=== PATIENT | female | born 1945 | race African-American/Black ===

== ENCOUNTER 2017-02-03 14:40 | Emergency (ER) | payer MEDICARE ==
[~2017-02-03] VITALS: Ht 160 cm; Wt 47.6 kg
[~2017-02-03 14:40] MED LIST: CYCLOBENZAPRINE10 MG ORAL
[2017-02-03 15:03] VITALS: BP 160/67
[2017-02-03 16:08] VITALS: BP 160/67
--- NOTE | 2017-02-03 17:37 | Emergency Room Report ---
History of Present Illness General Chief Complaint: Female Urogenital Problems Source: Patient Present Illness HPI 71-year-old female presents to ED for evaluation. States the last 2 days she's had increased bladder pain and dysuria. Notes history of bladder infections. Patient states she was recent hospitalized and was placed on IV antibiotics for bladder infection. States pain is sharp, 6/10, nonradiating. Denies flank pain. Denies fevers or chills. Denies nausea or vomiting. She has history of dialysis, says that his last dialysis session was yesterday. No other aggravating or relieving factors. Denies any other associated symptoms Allergies: Coded Allergies: NO KNOWN ALLERGIES (Unverified Allergy, Unknown, 09/28/15) Patient History Past Medical History: DM, [place], renal disease, dialysis Past Surgical History: none, pacemaker Pertinent Family History: none Social History: Denies: alcohol use, drug use, smoking Now: No Immunizations: UTD Reviewed Nursing Documentation: PMH: Agreed, PSxH: Agreed Nursing Documentation-PMH Past Medical History: No History, Except For Hx Cardiac Problems: Yes - [place] in 1999 Hx Hypertension: Yes Hx Pacemaker: Yes - ICD Hx Asthma: No Hx COPD: No Hx Diabetes: Yes Hx Cancer: No Hx Gastrointestinal Problems: No Hx Dialysis: Yes - AV shunt on LUE, M, W, F History Of Psychiatric Problem: No Hx Neurological Problems: No Hx Cerebrovascular Accident: No Hx Seizures: No Review of Systems All Other Systems: negative except mentioned in HPI Physical Exam Vital Signs Date Time Temp Pulse Resp B/P Pulse Ox O2 Delivery O2 Flow Rate FiO2 02/03/17 14:49 98.1 81 14 160/67 99 Room Air Sp02 EP Interpretation: reviewed, normal General Appearance: no apparent distress, alert, GCS 15, non-toxic Head: normocephalic Eyes: bilateral eye PERRL, bilateral eye normal inspection ENT: normal ENT inspection Neck: normal inspection Respiratory: normal inspection Cardiovascular #1: normal inspection Gastrointestinal: normal inspection Rectal: deferred Genitourinary: no CVA tenderness Musculoskeletal: normal inspection Neurologic: alert, oriented x3, responsive, motor strength/tone normal, sensory intact, speech normal Psychiatric: normal inspection Skin: normal inspection Lymphatic: normal inspection Medical Decision Making Diagnostic Impression: Primary Impression: Dysuria ER Course Hospital Course 71-year-old female presents to ED complaining of dysuria with suprapubic pain. Differential diagnoses include: UTI, cystitis, pyelonephritis Clinical course Patient placed on stretcher. After initial history and physical I ordered UA Patient states she is unable to urinate and only produces very little urine. Patient requests a Peters catheter. A catheter is placed and patient does not have any urine output. Patient given water. Patient still yield no urine. I explained to the patient that I cannot provide antibiotics without a urine sample. Patient states she will take a urine cup home and come back with the urine sample when available. She appears well, nontoxic and I believe patient be safely discharged at this time Diagnosis - dysuria Stable and discharged home. Instructed to followup with PMD. Return to ED if symptoms recur or worsen Last Vital Signs Date Time Temp Pulse Resp B/P Pulse Ox O2 Delivery O2 Flow Rate FiO2 02/03/17 16:08 98.1 79 14 160/67 99 Room Air Status: unchanged Disposition: HOME, SELF-CARE Condition: Stable Referrals: NON PHYSICIAN (PCP) Patient Instructions: Urinary Tract Infection, [id number] ROXANNA BECKETT M.D. Feb 03, 2017 17:36
== END 2017-02-03 16:08 | disposition home or self-care (01) ==
LOC: EMR 15:17
DX: R30.0 Dysuria (principal); R10.30 Lower abdominal pain, unspecified; I25.2 Old myocardial infarction; E11.9 Type 2 diabetes mellitus without complications; I12.0 Hypertensive chronic kidney disease with stage 5 chronic kidney disease or end stage renal disease; N18.6 End stage renal disease; Z99.2 Dependence on renal dialysis; Z95.810 Presence of automatic (implantable) cardiac defibrillator
CPT/HCPCS: 51701

== ENCOUNTER 2017-04-17 15:05 | Inpatient (IN) | payer MEDICARE ==
[~2017-04-17] VITALS: Ht 165.1 cm; Wt 48.3 kg
[2017-04-17 15:15] VITALS: BP 175/89
[2017-04-17] MEDS ORDERED: Mylanta II UD 30ml ORAL ONE (15:30)
--- NOTE | 2017-04-17 15:32 | Emergency Room Report ---
History of Present Illness General Chief Complaint: Abdominal Pain Source: Patient Present Illness HPI Patient is a 71-year-old female who presented after increased epigastric pain. Patient gradual onset of symptoms. Patient had a reported history of end-stage renal disease. Patient stated that she had been dialyzed on Tuesday. She had reported increased epigastric fullness. This was associated with discomfort. She denied any diarrhea or vomiting. She denied black or bloody stools. The patient stated that she had attempted to take Pepto-Bismol as well as maria teresa corky without relief Allergies: Coded Allergies: NO KNOWN ALLERGIES (Unverified Allergy, Unknown, 09/28/15) Patient History Past Medical History: see triage record Last Menstrual Period: na Reviewed Nursing Documentation: PMH: Agreed, PSxH: Agreed Nursing Documentation-PMH Past Medical History: No History, Except For Hx Cardiac Problems: Yes - [place] in 1999 Hx Hypertension: Yes Hx Pacemaker: Yes - ICD Hx Asthma: No Hx COPD: No Hx Diabetes: Yes Hx Cancer: No Hx Gastrointestinal Problems: No Hx Dialysis: Yes - AV shunt on LUE, M, W, F Hx Neurological Problems: No Hx Cerebrovascular Accident: No Hx Seizures: No Review of Systems All Other Systems: negative except mentioned in HPI Physical Exam Vital Signs Date Time Temp Pulse Resp B/P Pulse Ox O2 Delivery O2 Flow Rate FiO2 04/17/17 15:10 98.4 82 18 175/89 96 Room Air Sp02 EP Interpretation: reviewed, normal General Appearance: normal inspection, no apparent distress, alert, GCS 15, Chronically Ill Head: atraumatic ENT: normal ENT inspection, hearing grossly normal, normal voice Neck: normal inspection, full range of motion, supple, no bony tend Respiratory: normal inspection, lungs clear, normal breath sounds, no respiratory distress, no retraction, no wheezing Cardiovascular #1: regular rate, rhythm, no edema Gastrointestinal: normal inspection, normal bowel sounds, non tender, soft, no guarding, no hernia Genitourinary: no CVA tenderness Musculoskeletal: normal inspection, back normal, normal range of motion Neurologic: normal inspection, alert, oriented x3, responsive, parking regulation enforcement officer III-XII nml as tested, speech normal Psychiatric: normal inspection, judgement/insight normal, mood/affect normal Skin: normal color, no rash, other - ulceration to left upper arm, palpable thrill in arm Medical Decision Making Diagnostic Impression: Primary Impression: Chronic renal failure Additional Impressions: Hyperkalemia Abdominal pain ER Course Patient presented for abdominal pain. Differential diagnoses included ischemic bowel, appendicitis, perforated viscus, abdominal aortic aneurysm, inferior myocardial infarction, viral gastroenteritis Because of complexity of patient's case laboratory testing and imaging studies were ordered.CT abdomen pelvis read by radiology she does pacing fluids and including interstitial infiltrates and bilateral pulmonary edema pleural effusion periportal edema. The cardiomegaly and pacemaker were noted. The patient was given Kayexalate. I laboratory testing was notable for elevated potassium as well as BUN/creatinine. Dr. Jose Angel Maya was contacted for inpatient management. Labs Test 04/17/17 15:40 White Blood Count 6.2 K/UL (4.8-10.8) Red Blood Count 3.56 M/UL (4.20-5.40) Hemoglobin 11.3 G/DL (12.0-16.0) Hematocrit 36.2 % (37.0-47.0) Mean Corpuscular Volume 102 FL (80-99) Mean Corpuscular Hemoglobin 31.8 PG (27.0-31.0) Mean Corpuscular Hemoglobin Concent 31.3 G/DL (32.0-36.0) Red Cell Distribution Width 23.0 % (11.6-14.8) Platelet Count 122 K/UL (150-450) Mean Platelet Volume 8.2 FL (6.5-10.1) Neutrophils (%) (Auto) 77.0 % (45.0-75.0) Lymphocytes (%) (Auto) 13.0 % (20.0-45.0) Monocytes (%) (Auto) 8.5 % (1.0-10.0) Eosinophils (%) (Auto) 0.5 % (0.0-3.0) Basophils (%) (Auto) 1.1 % (0.0-2.0) Sodium Level 136 mEQ/L (135-145) Potassium Level 5.0 mEQ/L (3.4-4.9) Chloride Level 90 mEQ/L (98-107) Carbon Dioxide Level 24 mEQ/L (20-30) Anion Gap 22 (5-15) Blood Urea Nitrogen 46 mg/dL (7-23) Creatinine 6.6 mg/dL (0.5-0.9) Estimat Glomerular Filtration Rate mL/min (>60) Glucose Level 394 mg/dL (74-106) Calcium Level 9.3 mg/dL (8.6-10.2) Total Bilirubin 0.5 mg/dL (0.0-1.2) Aspartate Amino Transf (AST/SGOT) 40 U/L (5-40) Alanine Aminotransferase (ALT/SGPT) 26 U/L (3-33) Alkaline Phosphatase 154 U/L (35-104) Troponin I < 0.30 ng/mL (<=0.30) Total Protein 7.3 g/dL (6.6-8.7) Albumin 3.9 g/dL (3.5-5.2) Globulin 3.4 g/dL Albumin/Globulin Ratio 1.1 (1.0-2.7) Lipase 56 U/L (< 60) Last Vital Signs Date Time Temp Pulse Resp B/P Pulse Ox O2 Delivery O2 Flow Rate FiO2 04/17/17 15:15 98.4 18 175/89 96 Room Air 04/17/17 15:10 82 Status: unchanged Disposition: ADMITTED INPATIENT Condition: Serious Jay Jaquez Apr 17, 2017 15:32
[2017-04-17 16:26] LABS: BASOPHILS % (AUTO) 1.1 % (0.0-2.0); EOSINOPHILS % (AUTO) 0.5 % (0.0-3.0); MEAN CORPUSCULAR HEMOGLOBIN 31.8 PG (27.0-31.0); MEAN CORPUSCULAR HGB CONC 31.3 G/DL (32.0-36.0); MEAN CORPUSCULAR VOLUME 102 FL (80-99); MEAN PLATELET VOLUME 8.2 FL (6.5-10.1); MONOCYTES % (AUTO) 8.5 % (1.0-10.0); PLATELET COUNT 122 K/UL (150-450); RED BLOOD COUNT 3.56 M/UL (4.20-5.40); WHITE BLOOD COUNT 6.2 K/UL (4.8-10.8)
[2017-04-17 16:31] LABS: ALANINE AMINOTRANSFERASE 26 U/L (3-33); ALBUMIN/GLOBULIN RATIO 1.1 (1.0-2.7); ANION GAP 22 (5-15); ASPARTATE AMINO TRANSFERASE 40 U/L (5-40); CALCIUM 9.3 mg/dL (8.6-10.2); CARBON DIOXIDE 24 mEQ/L (20-30); CHLORIDE 90 mEQ/L (98-107); CREATININE 6.6 mg/dL (0.5-0.9); HEMOLYSIS 76; LIPASE 56 U/L (< 60); SODIUM 136 mEQ/L (135-145); TOTAL PROTEIN 7.3 g/dL (6.6-8.7)
[2017-04-17 16:34] LABS: TROPONIN I < 0.30 ng/mL (<=0.30)
[2017-04-17 16:41] VITALS: BP 162/67
[2017-04-17 18:05] VITALS: BP 157/72
[2017-04-17] MEDS ORDERED: GLIPIZIDE5 MG ORAL (18:20)
[2017-04-17] MEDS ORDERED: LISINOPRIL10 MG ORAL (18:20)
[2017-04-17] MEDS ORDERED: ASPIR 8181 MG ORAL (18:20)
[2017-04-17] MEDS ORDERED: OMEPRAZOLE20 M2 ORAL (18:20)
[2017-04-17] MEDS ORDERED: CARVEDILOL3.125 MG ORAL (18:20)
[2017-04-17] MEDS ORDERED: NOVOLOG100 UNIT/3 SUBQ (18:25)
[2017-04-17] MEDS ORDERED: Sodium Polystyrene Sulfonate 15gm Powder ORAL ONE (20:00)
[2017-04-17 20:15] VITALS: BP 144/61
[2017-04-17 22:18] VITALS: BP 156/72
[2017-04-17] MEDS ORDERED: Morphine Sulfate 4mg/ml Inj IVP PRN (22:30)
[2017-04-17] MEDS ORDERED: Morphine Sulfate 2mg/ml Inj IVP PRN (22:30)
[2017-04-17 23:20] VITALS: BP 148/71
--- NOTE | 2017-04-17 23:55 | History & Physical ---
History and Physical History & Physicial H&P dictated [id number] Dx: acute on chronic CHF exacerbation w/ Pulmonary edema ESRD on HD DM2 Abdominal pain r/o gastroparesis HTN ALEJANDRA MORALEZ M.D. Apr 17, 2017 23:55
[2017-04-18] MEDS ORDERED: Cyclobenzaprine 10mg Tab ORAL PRN
[2017-04-18] MEDS: Pantoprazole Inj IVP SCH ×3 (00:37→21:00)
--- NOTE | 2017-04-18 01:15 | History and Physical Report ---
DATE OF ADMISSION: 04/17/2017 CHIEF COMPLAINT: Shortness of breath and epigastric pain. HISTORY OF PRESENT ILLNESS: This is a 71-year-old female with history of end-stage renal disease on hemodialysis, Mondays, Wednesdays, and Fridays, congestive heart failure, hypertension, and status post ICD, who presents to the emergency room with epigastric pain. She states that she has diffuse abdominal pain. It feels like indigestion. She reports of bloating as well as belching. She has been in the emergency room a few months ago for the same problem. She had endoscopy in 2016 that was normal. The endoscopy was done at [facility]. She is followed by kiln cleaner Dr. Gutierrze at [facility]. Her last dialysis was Tuesday. She has got shortness of breath but denies chest pain. She denies any nausea, vomiting, or fever. She has had weight loss of approximately 20 pounds for this year. No blood in stools. PAST MEDICAL HISTORY: Significant for [place] in the year 1999, congestive heart failure status post ICD, hypertension, diabetes, and end-stage renal disease, on hemodialysis. PAST SURGICAL HISTORY: Left upper extremity graft that has failed because of infection, right chest wall tunneled dialysis catheter. MEDICATIONS: Reviewed in [facility] ALLERGIES: No known drug allergies. SOCIAL HISTORY: The patient does not drink alcohol or use any drugs. She is a former smoker. FAMILY HISTORY: Noncontributory. REVIEW OF SYSTEMS: A twelve point review of systems is negative except for pertinent positives as mentioned above. PHYSICAL EXAMINATION: VITAL SIGNS: Temperature is 98.4 degrees, pulse is 82, respiratory rate 18, blood pressure 175/89, and O2 saturation is 96% on room air. GENERAL: The patient is in no acute distress. The patient is alert, awake, and oriented. HEENT: Normocephalic/atraumatic. NECK: Supple. No JVD. LUNGS: Bilateral crackles heard. No wheezing. CARDIOVASCULAR: Regular rate and rhythm. Normal S1 and S2. ABDOMEN: Soft, nontender, and nondistended. No guarding. EXTREMITIES: No clubbing, cyanosis, or edema. SKIN: Normal inspection. No rash. PSYCH: Appropriate mood and affect. NEURO: Awake and can move all extremities. LABORATORY AND DIAGNOSTIC DATA: CBC, white count of 6.2, hemoglobin 11.2, and platelet count of 122,000. BMP, sodium 136, potassium 5, chloride 92, CO2 24, BUN 46, and creatinine 6.6. Glucose level is 394. Calcium is 9.3. EKG is pending. ASSESSMENT: 1. Acute on chronic congestive heart failure exacerbation with pulmonary edema. 2. Abdominal pain. 3. Differential diagnosis includes gastritis versus peptic ulcer disease versus gastroparesis. 4. Diabetes. 5. Hypertension. 6. History of congestive heart failure. 7. End-stage renal disease, on hemodialysis. PLAN: 1. Admit the patient to telemetry. 2. Renal consult with Dr. Chong for dialysis tomorrow. 3. Pulmonary consult for pulmonary edema. 4. ordered. 5. GI consult with Dr. Cabrera. 6. Protonix IV 40 mg b.i.d. 7. Regular insulin sliding scale. Jose Angel Maya MD DR: FREDDY/Bhargavi JOB#: [id number] CC:
[2017-04-18 04:10] VITALS: BP 157/78
[2017-04-18 07:09] LABS: BASOPHILS % (AUTO) 0.8 % (0.0-2.0); EOSINOPHILS % (AUTO) 2.6 % (0.0-3.0); LYMPHOCYTES % (AUTO) 13.5 % (20.0-45.0); MEAN CORPUSCULAR HGB CONC 30.8 G/DL (32.0-36.0); MEAN CORPUSCULAR VOLUME 101 FL (80-99); MEAN PLATELET VOLUME 8.2 FL (6.5-10.1); MONOCYTES % (AUTO) 11.5 % (1.0-10.0); NEUTROPHILS % (AUTO) 71.6 % (45.0-75.0); PLATELET COUNT 128 K/UL (150-450); RED BLOOD COUNT 3.84 M/UL (4.20-5.40); RED CELL DISTRIBUTION WIDTH 22.9 % (11.6-14.8); WHITE BLOOD COUNT 6.2 K/UL (4.8-10.8)
[2017-04-18 07:23] LABS: ANION GAP 26 (5-15); CALCIUM 8.7 mg/dL (8.6-10.2); CARBON DIOXIDE 21 mEQ/L (20-30); CHLORIDE 90 mEQ/L (98-107); CREATININE 7.2 mg/dL (0.5-0.9); HEMOLYSIS 51; POTASSIUM 4.1 mEQ/L (3.4-4.9); SODIUM 137 mEQ/L (135-145)
[2017-04-18] MEDS: NovoLOG Insulin Flexpen SUBQ SCH ×4 (07:26→21:46)
[2017-04-18 08:00] VITALS: BP 159/69
[2017-04-18] MEDS: Aspirin EC 81mg tab ORAL SCH (08:51)
[2017-04-18] MEDS: Lisinopril 20mg tab ORAL SCH ×2 (08:58→17:51)
[2017-04-18] MEDS: Heparin 5000 units/ml inj SUBQ SCH ×3 (09:00→21:00)
--- NOTE | 2017-04-18 11:25 | Diagnostic Imaging Report ---
Indications: Abdominal pain Technique: Continuous helical CT imaging of the abdomen and pelvis was performed with automatic exposure control on a Siemens sensation [address] scanner. Axial, coronal, sagittal images reconstructed at 3 mm slice thickness. No IV contrast was administered due to elevated BUN and creatinine levels. No oral contrast was administered per requesting physician's order, despite no contraindications listed. CTDI volume(s): 10 mGy Total DLP: 433 mGy-cm Findings: Comparison: None Lack of IV and oral contrast limits evaluation. Gastrointestinal tract nondilated throughout. One or more segments of mural thickening not excludable. Appendix not identified. Mild ascites. Colonic diverticula. No obvious adjacent stranding, extraluminal gas or loculated fluid collections demonstrated. Low-attenuation surrounds intrahepatic portal vein branches. Prominent arterial mural calcifications. Vascular patency indeterminate. Uterus and ovaries not identified. Urinary bladder poorly distended. Mural thickening not excludable. Diffuse body wall stranding. Remainder visualized abdominopelvic anatomy demonstrates no other obvious acute abnormality. Heart enlarged with right chamber pacemaker leads. Patchy interstitial infiltrates in both lung bases. Small bibasal pleural effusions. Multilevel disc marginal osteophyte formation lumbar, lower thoracic spine. Impression: Ascites, periportal edema, bilateral pulmonary interstitial infiltrates which may represent edema, bibasal pleural effusions, body wall edema may all represent anasarca. Superimposed left and right heart failure must also be considered. Limited evaluation gastrointestinal tract. Pathologic mural thickening of small bowel and/or colon not excludable. No evidence of obstruction or perforation. Colonic diverticulosis Previous hysterectomy Arteriosclerosis Cardiomegaly with pacemaker leads Degenerative spondylosis
[2017-04-18 12:00] VITALS: BP 151/69
--- NOTE | 2017-04-18 12:05 | Consultation ---
Consult Note Assessment/Plan Renal consult dictated # [id number] CADEN GORDON Apr 18, 2017 12:05
--- NOTE | 2017-04-18 12:05 | Internal Med Progress Note ---
Subjective Physician Name Jose Angel Moralez Attending Physician Jose Angel Moralez M.D. Current Medications Medications (Trade) Dose Ordered Sig/Rosalio Route PRN Reason Start Time Stop Time Status Last Admin Dose Admin Acetaminophen (Tylenol) 650 mg Q4H PRN ORAL Mild Pain (Pain Scale 1-3) 04/17/17 22:30 05/17/17 22:29 Aspirin (Ecotrin) 81 mg DAILY ORAL 04/18/17 09:00 05/18/17 08:59 04/18/17 08:51 Bisacodyl (Dulcolax) 10 mg HSPRN PRN RECTAL Constipation 04/17/17 22:30 05/17/17 22:29 Carvedilol (Coreg) 6.25 mg EVERY 12 HOURS ORAL 04/18/17 09:00 05/18/17 08:59 04/18/17 08:56 Cyclobenzaprine HCl (Flexeril) 10 mg BID PRN ORAL Muscle Spasm 04/18/17 00:00 05/18/17 00:00 Dextrose (Dextrose 50%) STAT PRN IV Hypoglycemia 04/18/17 00:00 05/18/17 00:00 Heparin Sodium (Porcine) (Heparin 5000 units/ml) 5,000 units EVERY 12 HOURS SUBQ 04/18/17 09:00 05/18/17 08:59 Heparin Sodium (Porcine) (Heparin Sod 1000 units/ml 10ml) 2,000 unit ONCE ONCE IV 04/18/17 23:45 04/18/17 23:46 Insulin Aspart (NovoLOG) BEFORE MEALS AND HS SUBQ 04/18/17 06:30 05/18/17 06:29 04/18/17 07:26 Lisinopril (Prinivil) 20 mg BID ORAL 04/18/17 09:00 05/18/17 08:59 04/18/17 08:58 Morphine Sulfate (Morphine Sulfate) 2 mg Q6HR PRN IVP Moderate Pain (Pain Scale 4-6) 04/17/17 22:30 04/24/17 22:29 Morphine Sulfate (Morphine Sulfate) 4 mg Q6HR PRN IVP Severe Pain (Pain Scale 7-10) 04/17/17 22:30 04/24/17 22:29 Ondansetron HCl 4 mg 4 mg Q6H PRN IVP Nausea & Vomiting 04/17/17 22:30 05/17/17 22:29 Pantoprazole (Protonix) 40 mg EVERY 12 HOURS IVP 04/18/17 00:00 05/18/17 00:00 04/18/17 08:52 Sodium Chloride (Sodium Chloride 1000ml bag) 1,000 ml @ 500 mls/hr Q2H PRN IVLG sbp<90 during hd 04/18/17 23:44 05/18/17 23:43 Allergies: Coded Allergies: NO KNOWN ALLERGIES (Unverified Allergy, Unknown, 09/28/15) Subjective on 2L O2 reports SOB denies CP awaiting HD 12 pt ROS neg except above positives Objective Last Vital Signs Date Time Temp Pulse Resp B/P Pulse Ox O2 Delivery O2 Flow Rate FiO2 04/18/17 11:08 89 04/18/17 08:58 159/69 04/18/17 08:00 98.8 18 Nasal Cannula 3.0 87 04/18/17 04:10 94 Laboratory Tests Test 04/17/17 15:40 04/18/17 04:35 White Blood Count 6.2 K/UL (4.8-10.8) 6.2 K/UL (4.8-10.8) Red Blood Count 3.56 M/UL (4.20-5.40) L 3.84 M/UL (4.20-5.40) L Hemoglobin 11.3 G/DL (12.0-16.0) L 11.9 G/DL (12.0-16.0) L Hematocrit 36.2 % (37.0-47.0) L 38.6 % (37.0-47.0) Mean Corpuscular Volume 102 FL (80-99) H 101 FL (80-99) H Mean Corpuscular Hemoglobin 31.8 PG (27.0-31.0) H 31.0 PG (27.0-31.0) Mean Corpuscular Hemoglobin Concent 31.3 G/DL (32.0-36.0) L 30.8 G/DL (32.0-36.0) L Red Cell Distribution Width 23.0 % (11.6-14.8) H 22.9 % (11.6-14.8) H Platelet Count 122 K/UL (150-450) L 128 K/UL (150-450) L Mean Platelet Volume 8.2 FL (6.5-10.1) 8.2 FL (6.5-10.1) Neutrophils (%) (Auto) 77.0 % (45.0-75.0) H 71.6 % (45.0-75.0) Lymphocytes (%) (Auto) 13.0 % (20.0-45.0) L 13.5 % (20.0-45.0) L Monocytes (%) (Auto) 8.5 % (1.0-10.0) 11.5 % (1.0-10.0) H Eosinophils (%) (Auto) 0.5 % (0.0-3.0) 2.6 % (0.0-3.0) Basophils (%) (Auto) 1.1 % (0.0-2.0) 0.8 % (0.0-2.0) Sodium Level 136 mEQ/L (135-145) 137 mEQ/L (135-145) Potassium Level 5.0 mEQ/L (3.4-4.9) H 4.1 mEQ/L (3.4-4.9) Chloride Level 90 mEQ/L (98-107) L 90 mEQ/L (98-107) L Carbon Dioxide Level 24 mEQ/L (20-30) 21 mEQ/L (20-30) Anion Gap 22 (5-15) H 26 (5-15) H Blood Urea Nitrogen 46 mg/dL (7-23) H 50 mg/dL (7-23) H Creatinine 6.6 mg/dL (0.5-0.9) H 7.2 mg/dL (0.5-0.9) H Estimat Glomerular Filtration Rate mL/min (>60) mL/min (>60) Glucose Level 394 mg/dL (74-106) H 170 mg/dL (74-106) #H Calcium Level 9.3 mg/dL (8.6-10.2) 8.7 mg/dL (8.6-10.2) Total Bilirubin 0.5 mg/dL (0.0-1.2) Aspartate Amino Transf (AST/SGOT) 40 U/L (5-40) Alanine Aminotransferase (ALT/SGPT) 26 U/L (3-33) Alkaline Phosphatase 154 U/L (35-104) H Troponin I < 0.30 ng/mL (<=0.30) Total Protein 7.3 g/dL (6.6-8.7) Albumin 3.9 g/dL (3.5-5.2) Globulin 3.4 g/dL Albumin/Globulin Ratio 1.1 (1.0-2.7) Lipase 56 U/L (< 60) Hemoglobin A1c 8.3 % (< 6.0) H Phosphorus Level 5.0 mg/dL (2.5-4.8) H Intake and Output 04/17/17 04/18/17 19:00 07:00 Intake Total 0 ml Balance 0 ml Intake Oral 0 ml # Voids 2 # Bowel Movements 1 Objective GENERAL: The patient is in no acute distress. The patient is alert, awake, and oriented. HEENT: Normocephalic/atraumatic. NECK: Supple. No JVD. LUNGS: Bilateral crackles heard. No wheezing. CARDIOVASCULAR: Regular rate and rhythm. Normal S1 and S2. R CHEST WALL DIALYSIS CATHETER ABDOMEN: Soft, epigastric TTP, and nondistended. No guarding. EXTREMITIES: No clubbing, cyanosis, or edema. Left arm graft SKIN: Normal inspection. No rash. PSYCH: Appropriate mood and affect. NEURO: Awake and can move all extremities. Assessment/Plan Assessment/Plan ASSESSMENT: 1. Acute on chronic congestive heart failure exacerbation with pulmonary edema. 2. Abdominal pain. 3. Differential diagnosis includes gastritis versus peptic ulcer disease versus gastroparesis. 4. Diabetes (A1c 8) 5. Hypertension. 6. History of congestive heart failure. 7. End-stage renal disease, on hemodialysis. PLAN: 1. Telemetry. 2. Renal consult with Dr. Chong; scheduled for HD today 3. O2 as needed 4. Resume home meds 5. GI consult with Dr. Cabrera. 6. Protonix IV 40 mg b.i.d. 7. Regular insulin sliding scale. JOSE ANGEL MORALEZ M.D. Apr 18, 2017 12:05
--- NOTE | 2017-04-18 13:01 | GI Initial Consult Note ---
Bere Matos N.P. 04/18/17 1301: History of Present Illness General Date patient seen: Apr 18, 2017 Time patient seen: 12:52 Reason for Hospitalization: Abdominal Pain Referring physician: ALEJANDRA MORALEZ Reason for Consultation: ABDOMINAL PAIN Present Illness HPI Patient is a 71-year-old female who presented after increased epigastric pain. Patient gradual onset of symptoms. Patient had a reported history of end-stage renal disease. Patient stated that she had been dialyzed on Tuesday. She had reported increased epigastric fullness. This was associated with discomfort. She denied any diarrhea or vomiting. She denied black or bloody stools. The patient stated that she had attempted to take Pepto-Bismol as well as maria teresa corky without relief GI Consult. HPI as noted above. GI consulted for abdominal pain. Pt seen on floor, awake A&Ox4 NAD with no c/o of N/V/D. Pt c/o of LUQ abdominal pain now at 5/10 which worsens after she eats. Denies constipation, states she had a BM this morning. She presents today with mild anemia and elevated alkaline phosphatase. APCT reveals mural wall thickening of the SB and/or colon, see full report below. The patient has history of colonic polyps. Last colonoscopy was 5+ years ago. Procedure: CT Abdomen Pelvis WO Contrast Indications: Abdominal pain Impression: Ascites, periportal edema, bilateral pulmonary interstitial infiltrates which may represent edema, bibasal pleural effusions, body wall edema may all represent anasarca. Superimposed left and right heart failure must also be considered. Limited evaluation gastrointestinal tract. Pathologic mural thickening of small bowel and/or colon not excludable. No evidence of obstruction or perforation. Colonic diverticulosis Previous hysterectomy Arteriosclerosis Cardiomegaly with pacemaker leads Degenerative spondylosis Home Meds Active Scripts Cyclobenzaprine Hcl* (FLEXERIL*) 10 Mg Tablet, 10 MG ORAL BID Y for Muscle Spasm , #20 TAB Prov:SARAHY VALDEZ.Jules 09/28/15 Reported Medications Insulin Aspart* (NOVOLOG*) 100 Unit/1 Ml Insuln.pen, SUBQ, #1 EA 0 Refills 04/17/17 Glipizide* (GLIPIZIDE*) 5 Mg Tablet, 10 MG ORAL BIDAC, TAB 04/17/17 Carvedilol* (CARVEDILOL*) 3.125 Mg Tablet, ORAL EVERY 12 HOURS, TAB 04/17/17 Aspirin* (ASPIR 81*) 81 Mg Tablet.dr, 81 MG ORAL DAILY, TAB 04/17/17 Omeprazole (OMEPRAZOLE) 20 Mg Capsule.dr, 20 MG ORAL DAILY, CAP 04/17/17 Lisinopril* (LISINOPRIL*) 10 Mg Tablet, 20 MG ORAL BID, TAB 04/17/17 Allergies: Coded Allergies: NO KNOWN ALLERGIES (Unverified Allergy, Unknown, 09/28/15) Patient History PMH Narrative Hx Cardiac Problems: Yes - NV in 1999 Hx Hypertension: Yes Hx Pacemaker: Yes - ICD Hx Asthma: No Hx COPD: No Hx Diabetes: Yes Hx Cancer: No Hx Gastrointestinal Problems: No Hx Dialysis: Yes - AV shunt on LUE, M, W, F Hx Neurological Problems: No Hx Cerebrovascular Accident: No Hx Seizures: No Review of Systems All Other Systems: negative except mentioned in HPI Physical Exam Vital Signs Date Time Temp Pulse Resp B/P Pulse Ox O2 Delivery O2 Flow Rate FiO2 04/17/17 15:10 98.4 82 18 175/89 96 Room Air 04/17/17 23:20 2.0 04/18/17 08:00 87 Sp02 EP Interpretation: reviewed Labs Laboratory Tests Test 04/17/17 15:40 04/18/17 04:35 White Blood Count 6.2 K/UL (4.8-10.8) 6.2 K/UL (4.8-10.8) Red Blood Count 3.56 M/UL (4.20-5.40) L 3.84 M/UL (4.20-5.40) L Hemoglobin 11.3 G/DL (12.0-16.0) L 11.9 G/DL (12.0-16.0) L Hematocrit 36.2 % (37.0-47.0) L 38.6 % (37.0-47.0) Mean Corpuscular Volume 102 FL (80-99) H 101 FL (80-99) H Mean Corpuscular Hemoglobin 31.8 PG (27.0-31.0) H 31.0 PG (27.0-31.0) Mean Corpuscular Hemoglobin Concent 31.3 G/DL (32.0-36.0) L 30.8 G/DL (32.0-36.0) L Red Cell Distribution Width 23.0 % (11.6-14.8) H 22.9 % (11.6-14.8) H Platelet Count 122 K/UL (150-450) L 128 K/UL (150-450) L Mean Platelet Volume 8.2 FL (6.5-10.1) 8.2 FL (6.5-10.1) Neutrophils (%) (Auto) 77.0 % (45.0-75.0) H 71.6 % (45.0-75.0) Lymphocytes (%) (Auto) 13.0 % (20.0-45.0) L 13.5 % (20.0-45.0) L Monocytes (%) (Auto) 8.5 % (1.0-10.0) 11.5 % (1.0-10.0) H Eosinophils (%) (Auto) 0.5 % (0.0-3.0) 2.6 % (0.0-3.0) Basophils (%) (Auto) 1.1 % (0.0-2.0) 0.8 % (0.0-2.0) Sodium Level 136 mEQ/L (135-145) 137 mEQ/L (135-145) Potassium Level 5.0 mEQ/L (3.4-4.9) H 4.1 mEQ/L (3.4-4.9) Chloride Level 90 mEQ/L (98-107) L 90 mEQ/L (98-107) L Carbon Dioxide Level 24 mEQ/L (20-30) 21 mEQ/L (20-30) Anion Gap 22 (5-15) H 26 (5-15) H Blood Urea Nitrogen 46 mg/dL (7-23) H 50 mg/dL (7-23) H Creatinine 6.6 mg/dL (0.5-0.9) H 7.2 mg/dL (0.5-0.9) H Estimat Glomerular Filtration Rate mL/min (>60) mL/min (>60) Glucose Level 394 mg/dL (74-106) H 170 mg/dL (74-106) #H Calcium Level 9.3 mg/dL (8.6-10.2) 8.7 mg/dL (8.6-10.2) Total Bilirubin 0.5 mg/dL (0.0-1.2) Aspartate Amino Transf (AST/SGOT) 40 U/L (5-40) Alanine Aminotransferase (ALT/SGPT) 26 U/L (3-33) Alkaline Phosphatase 154 U/L (35-104) H Troponin I < 0.30 ng/mL (<=0.30) Total Protein 7.3 g/dL (6.6-8.7) Albumin 3.9 g/dL (3.5-5.2) Globulin 3.4 g/dL Albumin/Globulin Ratio 1.1 (1.0-2.7) Lipase 56 U/L (< 60) Hemoglobin A1c 8.3 % (< 6.0) H Phosphorus Level 5.0 mg/dL (2.5-4.8) H General Appearance: well appearing, no apparent distress, alert Head: normocephalic EENT: normal ENT inspection Neck: full range of motion, supple Respiratory: normal breath sounds, no respiratory distress Cardiovascular: normal rate Gastrointestinal: normal inspection, non tender, soft Rectal: deferred Musculoskeletal: back normal Neurologic: normal inspection, alert, oriented x3, responsive Psychiatric: normal inspection, judgement/insight normal, memory normal Skin: normal inspection, normal color, no rash, warm/dry Lymphatic: normal inspection, no adenopathy Current Medications Current Medications Medications (Trade) Dose Ordered Sig/Rosalio Route PRN Reason Start Time Stop Time Status Last Admin Dose Admin Acetaminophen (Tylenol) 650 mg Q4H PRN ORAL Mild Pain (Pain Scale 1-3) 04/17/17 22:30 05/17/17 22:29 Aspirin (Ecotrin) 81 mg DAILY ORAL 04/18/17 09:00 05/18/17 08:59 04/18/17 08:51 Bisacodyl (Dulcolax) 10 mg HSPRN PRN RECTAL Constipation 04/17/17 22:30 05/17/17 22:29 Bisacodyl (Dulcolax) 10 mg ONCE ONCE ORAL 04/18/17 16:00 04/18/17 16:01 Carvedilol (Coreg) 6.25 mg EVERY 12 HOURS ORAL 04/18/17 09:00 05/18/17 08:59 04/18/17 08:56 Cyclobenzaprine HCl (Flexeril) 10 mg BID PRN ORAL Muscle Spasm 04/18/17 00:00 05/18/17 00:00 Dextrose (Dextrose 50%) STAT PRN IV Hypoglycemia 04/18/17 00:00 05/18/17 00:00 Heparin Sodium (Porcine) (Heparin 5000 units/ml) 5,000 units EVERY 12 HOURS SUBQ 04/18/17 09:00 05/18/17 08:59 Heparin Sodium (Porcine) (Heparin Sod 1000 units/ml 10ml) 2,000 unit ONCE ONCE IV 04/18/17 23:45 04/18/17 23:46 Insulin Aspart (NovoLOG) BEFORE MEALS AND HS SUBQ 04/18/17 06:30 05/18/17 06:29 04/18/17 12:30 Lisinopril (Prinivil) 20 mg BID ORAL 04/18/17 09:00 05/18/17 08:59 04/18/17 08:58 Magnesium Citrate (Citrate Of Magnesia) 300 ml ONCE ONCE ORAL 04/18/17 16:00 04/18/17 16:01 Morphine Sulfate (Morphine Sulfate) 2 mg Q6HR PRN IVP Moderate Pain (Pain Scale 4-6) 04/17/17 22:30 04/24/17 22:29 Morphine Sulfate (Morphine Sulfate) 4 mg Q6HR PRN IVP Severe Pain (Pain Scale 7-10) 04/17/17 22:30 04/24/17 22:29 Ondansetron HCl 4 mg 4 mg Q6H PRN IVP Nausea & Vomiting 04/17/17 22:30 05/17/17 22:29 Pantoprazole (Protonix) 40 mg EVERY 12 HOURS IVP 04/18/17 00:00 05/18/17 00:00 04/18/17 08:52 Polyethylene Glycol (Miralax) 238 gm ONCE ONCE ORAL 04/18/17 16:00 04/18/17 16:01 Sodium Chloride (Sodium Chloride 1000ml bag) 1,000 ml @ 500 mls/hr Q2H PRN IVLG sbp<90 during hd 04/18/17 23:44 05/18/17 23:43 Vitamin B Complex/ Vit C/Folic Acid (Nephrovite) 1 tab DAILY ORAL 04/18/17 13:00 05/18/17 12:59 GI: Plan Problems: (1) Pacemaker (2) Alkaline phosphatase raised (3) Colon wall thickening (4) Abdominal pain Plan APCT reviewed. hx of colonic polyps Pt scheduled for EGD/colonoscopy to evaluate abdominal pain. - CLD, NPO @ [place]. - hold all blood thinners order lipase level monitor H&H, transfuse prn ppi fu labs Discussed with Dr. Boyd. Thank you for referring this patient, we will follow. RUKHSANA BOYD 04/20/17 1238: History of Present Illness General Reason for Hospitalization: Abdominal Pain Present Illness Home Meds Active Scripts Cyclobenzaprine Hcl* (FLEXERIL*) 10 Mg Tablet, 10 MG ORAL BID Y for Muscle Spasm , #20 TAB Prov:SARAHY VALDEZ 09/28/15 Reported Medications Insulin Aspart* (NOVOLOG*) 100 Unit/1 Ml Insuln.pen, SUBQ, #1 EA 0 Refills 04/17/17 Glipizide* (GLIPIZIDE*) 5 Mg Tablet, 10 MG ORAL BIDAC, TAB 04/17/17 Carvedilol* (CARVEDILOL*) 3.125 Mg Tablet, ORAL EVERY 12 HOURS, TAB 04/17/17 Aspirin* (ASPIR 81*) 81 Mg Tablet.dr, 81 MG ORAL DAILY, TAB 04/17/17 Omeprazole (OMEPRAZOLE) 20 Mg Capsule.dr, 20 MG ORAL DAILY, CAP 04/17/17 Lisinopril* (LISINOPRIL*) 10 Mg Tablet, 20 MG ORAL BID, TAB 04/17/17 Allergies: Coded Allergies: NO KNOWN ALLERGIES (Unverified Allergy, Unknown, 09/28/15) Patient History Social History Narrative The patient was seen and examined at bedside and all new and available data was reviewed in the patients chart. I agree with the above findings, impression and plan. (Patient seen earlier today. Signature stamp does not reflect patient encounter time.). -Ofelia Warren MDh Kenneth NKiah Apr 18, 2017 13:01 RUKHSANA BOYD Apr 20, 2017 12:38
[2017-04-18 15:27] VITALS: BP 141/66
[2017-04-18] MEDS ORDERED: Bisacodyl EC 5mg tab ORAL ONE (16:00)
[2017-04-18] MEDS ORDERED: Magnesium Citrate Liq Btl ORAL ONE (16:00)
[2017-04-18] MEDS ORDERED: Polyethylene Glycol 238gm bottle ORAL ONE (16:00)
--- NOTE | 2017-04-18 16:45 | Consultation ---
DATE OF CONSULTATION: 04/18/2017 NEPHROLOGY CONSULTATION CONSULTING PHYSICIAN: Shahriar Chong M.D. REFERRING PHYSICIAN: Jose Angel Maya M.D. REASON FOR CONSULTATION: End-stage renal disease, requiring hemodialysis. HISTORY OF PRESENT ILLNESS: This is a 71-year-old female with history of end-stage renal disease, on hemodialysis every Tuesday, Tuesday, and Tuesday. The patient tells me that she has been on dialysis for the past 10 years. The etiology of end-stage renal disease is diabetes and hypertension. The patient usually gets her dialysis in [place]. The patient was last dialyzed on Tuesday. The patient was admitted for abdominal pain. PAST MEDICAL HISTORY: History of CHF, history of ICD placement, hypertension, and diabetes. The patient has a left arm graft and apparently, this was revised about 2 weeks ago and she still has grisel there. MEDICATIONS: Reviewed and noted in EMR. ALLERGIES: No known drug allergies. SOCIAL HISTORY: No history of smoking or alcohol abuse. REVIEW OF SYSTEMS: Noncontributory. PHYSICAL EXAMINATION: GENERAL: The patient is a an elderly female, in no acute distress. VITAL SIGNS: Blood pressure is 159/69, pulse 89, temperature 98.8, and respiratory rate is 18. HEENT: [place] conjunctivae. Anicteric sclerae. NECK: Supple. LUNGS: Clear to auscultation. HEART: S1 and S2 without murmurs or rubs. ABDOMEN: Soft and nontender. EXTREMITIES: No cyanosis or edema except the left arm, which has some swelling around her graft in the upper arm and the patient still has grisel there. The graft has good bruit. LABORATORY FINDINGS: The CBC shows a WBC of 6.2, hematocrit is 38.6, hemoglobin is 11.9, and platelets are 128,000. Chemistry panel shows serum sodium of 137, potassium 4.1, chloride 99, BUN 50, creatinine 7.2, blood sugar is 170, and phosphorus is 5. ASSESSMENT: This is a 71-year-old, female, with history of end-stage renal disease, on hemodialysis Tuesday, Tuesday, and Tuesday, and history of diabetes and hypertension who was admitted for abdominal pain. PLAN: The patient will be dialyzed today. The patient's blood pressure will be followed and adjustments will be made in the patient's medications if it remains high. The patient will need also to be on Nephro-Arlene one a day. Shahriar Chong M.D. DR: EVANGELIST JOB#: [id number] CC: AYAKA
[2017-04-18] MEDS: Nephrovite tab ORAL SCH (17:50)
[2017-04-18 20:00] VITALS: BP 136/80
[2017-04-18] MEDS ORDERED: Heparin Sod 1000 units/ml 10ml IV ONE (23:45)
[2017-04-19] VITALS (10 sets, daily range): BP systolic 126–155; BP diastolic 55–80
[2017-04-19] MEDS: NovoLOG Insulin Flexpen SUBQ SCH ×4 (06:30→23:24)
[2017-04-19 08:08] LABS: BASOPHILS % (AUTO) 1.3 % (0.0-2.0); EOSINOPHILS % (AUTO) 4.2 % (0.0-3.0); LYMPHOCYTES % (AUTO) 11.3 % (20.0-45.0); MEAN CORPUSCULAR HEMOGLOBIN 30.8 PG (27.0-31.0); MEAN CORPUSCULAR VOLUME 103 FL (80-99); MEAN PLATELET VOLUME 8.3 FL (6.5-10.1); MONOCYTES % (AUTO) 10.7 % (1.0-10.0); NEUTROPHILS % (AUTO) 72.5 % (45.0-75.0); PLATELET COUNT 128 K/UL (150-450); RED BLOOD COUNT 3.59 M/UL (4.20-5.40); RED CELL DISTRIBUTION WIDTH 22.8 % (11.6-14.8); WHITE BLOOD COUNT 5.2 K/UL (4.8-10.8)
[2017-04-19 08:13] LABS: INR 1.1 (0.9-1.1); PROTHROMBIN TIME 11.4 SEC (9.30-11.50)
[2017-04-19] MEDS: Aspirin EC 81mg tab ORAL SCH (09:00)
[2017-04-19] MEDS ORDERED: Propofol 10mg/ml 20ml IV ONE (09:00)
[2017-04-19] MEDS: Heparin 5000 units/ml inj SUBQ SCH ×2 (09:00→21:00)
[2017-04-19] MEDS ORDERED: LR 1000ml ONE (09:00)
[2017-04-19] MEDS: Pantoprazole Inj IVP SCH ×2 (09:00→23:14)
[2017-04-19] MEDS: Nephrovite tab ORAL SCH (09:00)
[2017-04-19] MEDS ORDERED: Lidocaine 1% MPF 10mg/ml 5ml ONE (09:00)
[2017-04-19] MEDS: Lisinopril 20mg tab ORAL SCH ×2 (09:00→17:30)
[2017-04-19] MEDS ORDERED: NS 550ML IV ONE (09:10)
--- NOTE | 2017-04-19 09:17 | Pre-Procedure Note/Attestation ---
Pre-Procedure Note/Attestation Complete Prior to Procedure Planned Procedure: not applicable Procedure Narrative: egd/colon Indications for Procedure Pre-Operative Diagnosis: anemia Attestation I attest that I discussed the nature of the procedure; its benefits; risks and complications; and alternatives (and the risks and benefits of such alternatives ), prior to the procedure, with the patient (or the patient's legal sales representative printing paper). I attest that, if there was a reasonable possibility of needing a blood transfusion, the patient (or the patient's legal sales representative printing paper) was given the [facility] standardized written summary, pursuant to the [place] Blood Safety Act ([place] Health and Safety Code # 1645, as amended). I attest that I re-evaluated the patient just prior to the surgery and that there has been no change in the patient's H&P, except as documented below: RUKHSANA BOYD Apr 19, 2017 09:17
--- NOTE | 2017-04-19 09:34 | Endoscopy Procedure Note ---
Endoscopy Procedure Note Indication for Procedure: anemia, abd pain Procedures Performed: EGD, colonoscopy Operative Findings/Diagnosis: diverticulosis Specimen: yes Pt Tolerated Procedure Well: Yes Estimated Blood Loss: none Anesthesiologist: phil Anesthesia: MAC Implant(s) used?: No 50 yrs or older w/o bx or poly: Not Applicable 10yrs. F/U not recommended: Not Applicable RUKHSANA BOYD Apr 19, 2017 09:34
--- NOTE | 2017-04-19 09:49 | Immediate Post-Op Evaluation ---
Immediate Post-Op Evalulation Immediate Post-Op Evalulation Procedure: EGD/colonoscopy Date of Evaluation: Apr 19, 2017 Time of Evaluation: 09:45 IV Fluids: 200 Blood Pressure Systolic: 126 Blood Pressure Diastolic: 58 Pulse Rate: 69 Respiratory Rate: 14 O2 Sat by Pulse Oximetry: 98 Temperature (Fahrenheit): 97.9 Nausea: No Vomiting: No Complications none Patient Status: awake, reacts, patent Hydration Status: adequate Drug: none VLADISLAV LANGSTON CRNA Apr 19, 2017 09:48
--- NOTE | 2017-04-19 09:51 | Anethesia Preoperative Eval ---
Anesthesia Pre-op PMH/ROS General Date of Evaluation: Apr 19, 2017 Time of Evaluation: 09:50 Anesthesiologist: miesha ASA Score: ASA 3 Mallampati Score Class I : Soft palate, uvula, fauces, pillars visible Class II: Soft palate, uvula, fauces visible Class III: Soft palate, base of uvula visible Class IV: Only hard plate visible Surgeon: sofia Diagnosis: Gastristis Surgical Procedure: EGD/Colonoscopy Anesthesia History: none Family History: no anesthesia problems Allergies: Coded Allergies: NO KNOWN ALLERGIES (Unverified Allergy, Unknown, 09/28/15) Medications: see eMAR Past Medical History Cardiovascular: Reports: CAD, HTN, other - AICD Pulmonary: Reports: COPD, other - CHF Gastrointestinal/Genitourinary: Reports: GERD, other - abd pain Neurologic/Psychiatric: Denies: CVA, TIA, dementia, depression/anxiety, other Endocrine: Denies: DM, hypothyroidism, other, steroids HEENT: Denies: [place] (L), [place] (R), cataract (L), cataract (R), glaucoma, other Hematology/Immune: Reports: anemia, other - PVD Musculoskeletal/Integumentary: Denies: DDD, DJD, OA, RA, edema, other PSxH Narrative: unknown Anesthesia Pre-op Phys. Exam Physician Exam Last Vital Signs Date Time Temp Pulse Resp B/P Pulse Ox O2 Delivery O2 Flow Rate FiO2 04/19/17 08:39 97.9 73 18 155/80 100 Nasal Cannula 2.0 04/18/17 15:27 87 Constitutional: NAD Neurologic: CN 2-12 intact Cardiovascular: RRR Gastrointestinal: S/NT/ND Airway Exam Mallampati Classification 3 MO: full ROM: full Anesthesia Pre-op A/P Labs Hematology Test 04/19/17 07:25 White Blood Count 5.2 K/UL (4.8-10.8) Red Blood Count 3.59 M/UL (4.20-5.40) L Hemoglobin 11.1 G/DL (12.0-16.0) L Hematocrit 36.8 % (37.0-47.0) L Mean Corpuscular Volume 103 FL (80-99) H Mean Corpuscular Hemoglobin 30.8 PG (27.0-31.0) Mean Corpuscular Hemoglobin Concent 30.0 G/DL (32.0-36.0) L Red Cell Distribution Width 22.8 % (11.6-14.8) H Platelet Count 128 K/UL (150-450) L Mean Platelet Volume 8.3 FL (6.5-10.1) Neutrophils (%) (Auto) 72.5 % (45.0-75.0) Lymphocytes (%) (Auto) 11.3 % (20.0-45.0) L Monocytes (%) (Auto) 10.7 % (1.0-10.0) H Eosinophils (%) (Auto) 4.2 % (0.0-3.0) H Basophils (%) (Auto) 1.3 % (0.0-2.0) Coagulation Test 04/19/17 07:25 Prothrombin Time 11.4 SEC (9.30-11.50) Prothromb Time International Ratio 1.1 (0.9-1.1) Activated Partial Thromboplast Time 27 SEC (23-33) Studies Pre-op Studies: EKG - SR Risk Assessment & Plan Plan: mac Pre-Antibiotics Drug: none VLADISLAV LANGSTON CRNA Apr 19, 2017 09:51
--- NOTE | 2017-04-19 09:56 | 48 Hour Post Anesthesia Eval ---
Post Anesthesia Evaluation Procedure: EGD/colonoscopy Date of Evaluation: Apr 19, 2017 Time of Evaluation: 09:56 Blood Pressure Systolic: 126 0: 65 Pulse Rate: 68 Respiratory Rate: 15 O2 Sat by Pulse Oximetry: 99 Airway: patent Nausea: No Vomiting: No Hydration Status: adequate Cardiopulmonary Status: stable Mental Status/LOC: patient returned to baseline Post-Anesthesia Complications: none Follow-up care needed: N/A VLADISLAV LANGSTON CRNA Apr 19, 2017 09:56
--- NOTE | 2017-04-19 15:59 | Nephrology Progress Note ---
Assessment/Plan Problem List: (1) ESRD (end stage renal disease) on dialysis (2) Abdominal pain (3) DM (diabetes mellitus) (4) HTN (hypertension) (5) CHF (congestive heart failure) Plan HD in AM follow labs Subjective Subjective feels better Objective Objective Last 24 Hour Vital Signs Date Time Temp Pulse Resp B/P Pulse Ox O2 Delivery O2 Flow Rate FiO2 04/19/17 12:01 97.3 64 18 139/58 100 Nasal Cannula 3.0 04/19/17 12:00 74 04/19/17 10:20 67 04/19/17 10:05 97.6 67 22 133/61 99 Nasal Cannula 2.0 04/19/17 10:00 66 21 134/59 99 Nasal Cannula 2.0 04/19/17 09:56 68 15 99 04/19/17 09:50 69 23 128/62 98 Nasal Cannula 2.0 04/19/17 09:48 69 14 98 04/19/17 09:45 68 04/19/17 09:45 97.7 68 20 126/58 98 Nasal Cannula 2.0 04/19/17 09:00 133/61 04/19/17 08:39 97.9 73 18 155/80 100 Nasal Cannula 2.0 04/19/17 08:00 66 04/19/17 04:00 65 04/19/17 04:00 97.5 64 20 141/56 100 Room Air 04/19/17 00:00 65 04/19/17 00:00 97.7 63 18 130/61 99 Nasal Cannula 2.0 04/18/17 21:47 71 136/80 04/18/17 20:00 72 04/18/17 20:00 98.0 71 20 136/80 96 Room Air 04/18/17 17:51 141/66 04/18/17 16:00 64 Intake and Output 04/18/17 04/19/17 19:00 07:00 Intake Total 740 ml Output Total 3006 ml Balance -3006 ml 740 ml Intake Oral 740 ml Output Hemodialysis UF 3006 ml # Voids 3 # Bowel Movements 1 4 Laboratory Tests 04/19/17 07:25: White Blood Count 5.2, Red Blood Count 3.59L, Hemoglobin 11.1L, Hematocrit 36.8L , Mean Corpuscular Volume 103H, Mean Corpuscular Hemoglobin 30.8, Mean Corpuscular Hemoglobin Concent 30.0L, Red Cell Distribution Width 22.8H, Platelet Count 128L, Mean Platelet Volume 8.3, Neutrophils (%) (Auto) 72.5, Lymphocytes (%) (Auto) 11.3L, Monocytes (%) (Auto) 10.7H, Eosinophils (%) (Auto ) 4.2H, Basophils (%) (Auto) 1.3, Prothrombin Time 11.4, Prothromb Time International Ratio 1.1, Activated Partial Thromboplast Time 27 Height (Feet): 5 Height (Inches): 5.00 Weight (Pounds): 110 Cardiovascular: normal rate Respiratory/Chest: lungs clear Extremities: other - no edema CADEN GORDON Apr 19, 2017 15:59
--- NOTE | 2017-04-19 17:00 | Procedure Note ---
DATE OF PROCEDURE: 04/19/2017 SURGEON: Collin Cabrera M.D. PROCEDURE: Upper endoscopy with biopsy and colonoscopy with biopsy. ANESTHESIOLOGIST: Kelly Chase CRNA. INSTRUMENT: Olympus adult flexible upper endoscope and colonoscope. INDICATIONS: Anemia and abdominal pain. REASON FOR PROCEDURE: The procedure, risks, benefits, and possible consequences, including hemorrhage, aspiration, perforation and infection, and alternative treatments, were explained to the patient/legal guardian by Dr. Collin Cabrera and the patient/legal guardian understood and accepted these risks. DESCRIPTION OF PROCEDURE: After informed consent was obtained and the patient was adequately sedated, Olympus upper endoscope was advanced from mouth into the second portion of duodenum and retroflexion was performed in the stomach. The patient had diffuse gastritis. Random biopsy from antrum was obtained to rule out H. pylori infection. The patient has also found to have small hiatal hernia. No other new findings were seen. The patient tolerated the procedure very well without complication. At this time, the upper endoscope was retrieved and the patient was turned over for colonoscopy. First, a rectal exam was performed, which was positive for internal hemorrhoid. Then, the scope was advanced from the rectum into the cecum documented by appendiceal orifice, ileocecal valve, and right upper quadrant palpation. Quality of prep was very good. The patient had significant diverticulosis in the left colon with some scattered diverticula in the right colon. The patient had a diminutive polyp in the sigmoid colon, which was removed with cold biopsy forceps technique. Retroflexion of rectum was performed which showed evidence of internal hemorrhoids. SUMMARY OF FINDINGS: 1. Gastritis, status post biopsy. 2. Small hiatal hernia. 3. Significant diverticulosis. 4. One colonic polyp removed, see above for details. 5. Internal hemorrhoids. RECOMMENDATIONS: 1. Followup biopsies and treat accordingly. 2. We will recommend repeat colonoscopy in five years. I want to thank, Dr. Jose Angel Maya, for this kind referral. Collin Cabrera M.D. DR: Jeff JOB#: [id number] CC: Jose Angel Maya MD
--- NOTE | 2017-04-19 19:50 | Cardiology Report ---
APPROVED REPORT EXAM: Two-dimensional and M-mode echocardiogram with Doppler and color Doppler. INDICATION Shortness of Breath M-Mode DIMENSIONS IVSd0.7 (0.7-1.1cm)Left Atrium (MM)3.2 (1.6-4.0cm) LVDd5.0 (3.5-5.6cm)Aortic Root3.3 (2.0-3.7cm) PWd1.2 (0.7-1.1cm)Aortic Cusp Exc.1.5 (1.5-2.0cm) IVSs0.9 cm LVDs4.7 (2.5-4.0cm) PWs1.2 cm Normal left ventricular chamber size. Global left ventricular hypokinesis. Basal posterior, inferior and inferoseptal akinesis. Left ventricular ejection fraction estimated to be 30-35 %. Mild left ventricular hypertrophy. Anterior Echo-free space, may be due to pericardial fat or effusion. Left atrial size at upper limits of normal. Right cardiac chamber sizes are within normal limits. Moderate focal aortic valve sclerosis with adequate cusp excursion. Thickened mitral valve leaflets with normal excursion. Mitral annulus and aortic root calcification. Pulmonic valve not well visualized. Normal tricuspid valve structure. IVC measured at 1.8 cm with slight physiologic collapse suggestive of mildly increased RA pressure. Pacemaker wire present in the right side chambers. A color flow and spectral Doppler study was performed and revealed: Moderate aortic regurgitation. Moderate to severe mitral regurgitation. Mitral inflow velocities indicates possible pseudo normalization pattern implying moderately elevated left atrial pressure (Grade II ). Moderate to severe tricuspid regurgitation. Tricuspid systolic velocities suggests peak right ventricular systolic pressure of 74 mmHg, consistent with severe pulmonary hypertension. Mild pulmonic regurgitation present.
--- NOTE | 2017-04-19 20:13 | Cardiology Report ---
APPROVED REPORT EKG Measurement Heart [id number] IN [id number] Normal sinus rhythm Possible Left atrial enlargement Nonspecific ST and T wave abnormality Abnormal ECG
--- NOTE | 2017-04-19 22:15 | Internal Med Progress Note ---
Subjective Physician Name Jose Angel Moralez Attending Physician Jose Angel Moralez M.D. Current Medications Medications (Trade) Dose Ordered Sig/Rosalio Route PRN Reason Start Time Stop Time Status Last Admin Dose Admin Acetaminophen (Tylenol) 650 mg Q4H PRN ORAL Mild Pain (Pain Scale 1-3) 04/17/17 22:30 05/17/17 22:29 Aspirin (Ecotrin) 81 mg DAILY ORAL 04/18/17 09:00 05/18/17 08:59 04/18/17 08:51 Bisacodyl (Dulcolax) 10 mg HSPRN PRN RECTAL Constipation 04/17/17 22:30 05/17/17 22:29 Carvedilol (Coreg) 6.25 mg EVERY 12 HOURS ORAL 04/18/17 09:00 05/18/17 08:59 04/18/17 21:47 Cyclobenzaprine HCl (Flexeril) 10 mg BID PRN ORAL Muscle Spasm 04/18/17 00:00 05/18/17 00:00 Dextrose (Dextrose 50%) STAT PRN IV Hypoglycemia 04/18/17 00:00 05/18/17 00:00 Heparin Sodium (Porcine) (Heparin 5000 units/ml) 5,000 units EVERY 12 HOURS SUBQ 04/18/17 09:00 05/18/17 08:59 Heparin Sodium (Porcine) (Heparin 5000 units/ml) 5,000 units POSTHD PRN INJ FOR HD 04/20/17 06:00 04/20/17 23:59 Heparin Sodium (Porcine) (Heparin Sod 1000 units/ml 10ml) 2,000 unit ONCE PRN IV for HD 04/20/17 06:00 04/20/17 23:59 Insulin Aspart (NovoLOG) BEFORE MEALS AND HS SUBQ 04/18/17 06:30 05/18/17 06:29 04/19/17 17:32 Lisinopril (Prinivil) 20 mg BID ORAL 04/18/17 09:00 05/18/17 08:59 04/19/17 17:30 Morphine Sulfate (Morphine Sulfate) 2 mg Q6HR PRN IVP Moderate Pain (Pain Scale 4-6) 04/17/17 22:30 04/24/17 22:29 Morphine Sulfate (Morphine Sulfate) 4 mg Q6HR PRN IVP Severe Pain (Pain Scale 7-10) 04/17/17 22:30 04/24/17 22:29 Ondansetron HCl 4 mg 4 mg Q6H PRN IVP Nausea & Vomiting 04/17/17 22:30 05/17/17 22:29 Pantoprazole (Protonix) 40 mg EVERY 12 HOURS IVP 04/18/17 00:00 05/18/17 00:00 04/18/17 08:52 Sodium Chloride (Sodium Chloride 1000ml bag) 1,000 ml @ 500 mls/hr Q2H PRN IVLG sbp<90 during hd 04/18/17 23:44 05/18/17 23:43 Sodium Chloride (Sodium Chloride 1000ml bag) 1,000 ml @ 500 mls/hr Q2H PRN IVLG sbp<90 during hd 04/20/17 06:00 04/20/17 23:59 Vitamin B Complex/ Vit C/Folic Acid 1 tab 1 tab DAILY ORAL 04/18/17 13:00 05/18/17 12:59 04/18/17 17:50 Allergies: Coded Allergies: NO KNOWN ALLERGIES (Unverified Allergy, Unknown, 09/28/15) Subjective on 2L O2 s/p colo showing diverticulosis s/p EGD - neg denies SOB denies CP 12 pt ROS neg except above positives Objective Last Vital Signs Date Time Temp Pulse Resp B/P Pulse Ox O2 Delivery O2 Flow Rate FiO2 04/19/17 20:00 98.1 72 20 137/63 99 Nasal Cannula 2.0 04/18/17 15:27 87 Laboratory Tests Test 04/19/17 07:25 White Blood Count 5.2 K/UL (4.8-10.8) Red Blood Count 3.59 M/UL (4.20-5.40) L Hemoglobin 11.1 G/DL (12.0-16.0) L Hematocrit 36.8 % (37.0-47.0) L Mean Corpuscular Volume 103 FL (80-99) H Mean Corpuscular Hemoglobin 30.8 PG (27.0-31.0) Mean Corpuscular Hemoglobin Concent 30.0 G/DL (32.0-36.0) L Red Cell Distribution Width 22.8 % (11.6-14.8) H Platelet Count 128 K/UL (150-450) L Mean Platelet Volume 8.3 FL (6.5-10.1) Neutrophils (%) (Auto) 72.5 % (45.0-75.0) Lymphocytes (%) (Auto) 11.3 % (20.0-45.0) L Monocytes (%) (Auto) 10.7 % (1.0-10.0) H Eosinophils (%) (Auto) 4.2 % (0.0-3.0) H Basophils (%) (Auto) 1.3 % (0.0-2.0) Prothrombin Time 11.4 SEC (9.30-11.50) Prothromb Time International Ratio 1.1 (0.9-1.1) Activated Partial Thromboplast Time 27 SEC (23-33) Microbiology Date/Time Source Procedure Growth Status 04/17/17 18:20 Nasal Nares MRSA Culture - Final NO METHICILLIN RESISTANT STAPH AUREUS... Complete 04/17/17 18:20 Rectum VRE Culture - Final Enterococcus Faecium - Vre Complete Intake and Output 04/18/17 04/19/17 19:00 07:00 Intake Total 740 ml Output Total 3006 ml Balance -3006 ml 740 ml Intake Oral 740 ml Output Hemodialysis UF 3006 ml # Voids 3 # Bowel Movements 1 4 Objective GENERAL: The patient is in no acute distress. The patient is alert, awake, and oriented. HEENT: Normocephalic/atraumatic. NECK: Supple. No JVD. LUNGS: Bilateral crackles heard. No wheezing. CARDIOVASCULAR: Regular rate and rhythm. Normal S1 and S2. R [employer] ABDOMEN: Soft, epigastric TTP, and nondistended. No guarding. EXTREMITIES: No clubbing, cyanosis, or edema. Left arm graft SKIN: Normal inspection. No rash. PSYCH: Appropriate mood and affect. NEURO: Awake and can move all extremities. Assessment/Plan Assessment/Plan ASSESSMENT: 1. Acute on chronic congestive heart failure exacerbation with pulmonary edema - improved 2. Abdominal pain - resolved 4. Diabetes (A1c 8) 5. Hypertension. 6. History of congestive heart failure. 7. End-stage renal disease, on hemodialysis. 8. Diverticulosis PLAN: 1. Telemetry. 2. Renal consult with Dr. Chong; 3. O2 as needed 4. Resume home meds 5. GI consult with Dr. Cabrera. 6. Protonix IV 40 mg b.i.d. 7. Regular insulin sliding scale. 8. EGD shows no gastritis or ulcers; Colonoscopy shows diverticulosis 9. HD tomorrow d/c planning tomorrow JOSE ANGEL MORALEZ M.D. Apr 19, 2017 22:15
[2017-04-20] VITALS (7 sets, daily range): BP systolic 117–149; BP diastolic 47–62
[2017-04-20] MEDS ORDERED: Heparin 5000 units/ml inj INJ PRN (06:00)
[2017-04-20] MEDS ORDERED: Heparin Sod 1000 units/ml 10ml IV PRN (06:00)
[2017-04-20] MEDS: NovoLOG Insulin Flexpen SUBQ SCH ×4 (06:16→21:09)
[2017-04-20 07:51] LABS: BASOPHILS % (AUTO) 0.6 % (0.0-2.0); EOSINOPHILS % (AUTO) 2.3 % (0.0-3.0); LYMPHOCYTES % (AUTO) 12.6 % (20.0-45.0); MEAN CORPUSCULAR HEMOGLOBIN 31.9 PG (27.0-31.0); MEAN CORPUSCULAR HGB CONC 31.8 G/DL (32.0-36.0); MEAN CORPUSCULAR VOLUME 100 FL (80-99); MEAN PLATELET VOLUME 7.5 FL (6.5-10.1); MONOCYTES % (AUTO) 9.6 % (1.0-10.0); PLATELET COUNT 128 K/UL (150-450); WHITE BLOOD COUNT 6.3 K/UL (4.8-10.8)
[2017-04-20 08:05] LABS: ANION GAP 23 (5-15); CALCIUM 7.7 mg/dL (8.6-10.2); CARBON DIOXIDE 23 mEQ/L (20-30); CHLORIDE 90 mEQ/L (98-107); CREATININE 7.6 mg/dL (0.5-0.9); HEMOLYSIS 10; POTASSIUM 3.9 mEQ/L (3.4-4.9); SODIUM 136 mEQ/L (135-145)
[2017-04-20] MEDS: Heparin 5000 units/ml inj SUBQ SCH ×2 (09:00→20:38)
[2017-04-20] MEDS: Nephrovite tab ORAL SCH (09:57)
[2017-04-20] MEDS: Pantoprazole Inj IVP SCH ×2 (09:57→20:54)
[2017-04-20] MEDS: Aspirin EC 81mg tab ORAL SCH (09:57)
[2017-04-20] MEDS: Lisinopril 20mg tab ORAL SCH ×2 (09:58→18:00)
--- NOTE | 2017-04-20 10:05 | GI Progress Note ---
Assessment/Plan Problems: (1) Colon wall thickening ICD Codes: K63.9 - Disease of intestine, unspecified SNOMED: 477022994 (2) Abdominal pain ICD Codes: R10.9 - Unspecified abdominal pain SNOMED: 12273005 (3) DM (diabetes mellitus) ICD Codes: E11.9 - Type 2 diabetes mellitus without complications SNOMED: 62839805 (4) Pacemaker ICD Codes: Z95.0 - Presence of cardiac pacemaker SNOMED: 985624365, 024594072 (5) Alkaline phosphatase raised ICD Codes: R74.8 - Abnormal levels of other serum enzymes SNOMED: 688406926 Status: stable Status Narrative Discussed with Dr. Cabrera. Assessment/Plan S/P EGD/Colonoscopy SUMMARY OF FINDINGS: 1. Gastritis, status post biopsy. 2. Small hiatal hernia. 3. Significant diverticulosis. 4. One colonic polyp removed. 5. Internal hemorrhoids. RECOMMENDATIONS: ok for DC per GI standpoint 1. Followup biopsies and treat accordingly. 2. We will recommend repeat colonoscopy in five years. Subjective Gastrointestinal/Abdominal: Reports: no symptoms Objective Last 24 Hour Vital Signs Date Time Temp Pulse Resp B/P Pulse Ox O2 Delivery O2 Flow Rate FiO2 04/20/17 09:58 147/58 04/20/17 09:57 73 147/58 04/20/17 08:57 97.0 73 18 147/58 100 Room Air 04/20/17 04:00 97.4 71 20 136/60 99 Room Air 04/20/17 04:00 71 04/20/17 00:00 75 04/20/17 00:00 97.0 75 19 142/60 94 Room Air 04/19/17 23:13 72 137/63 04/19/17 20:00 98.1 72 20 137/63 99 Nasal Cannula 2.0 04/19/17 20:00 75 04/19/17 17:30 149/55 04/19/17 16:08 97.1 70 18 149/55 100 Nasal Cannula 2.0 04/19/17 16:00 69 04/19/17 12:01 97.3 64 18 139/58 100 Nasal Cannula 3.0 04/19/17 12:00 74 04/19/17 10:20 67 04/19/17 10:05 97.6 67 22 133/61 99 Nasal Cannula 2.0 Intake and Output 04/19/17 04/20/17 19:00 07:00 Intake Total 780 ml 100 ml Output Total 0 ml Balance 780 ml 100 ml Intake Oral 480 ml 100 ml IV Total 300 ml Estimated Blood Loss 0 ml # Bowel Movements 1 Laboratory Tests Test 04/20/17 06:05 White Blood Count 6.3 K/UL (4.8-10.8) Red Blood Count 3.60 M/UL (4.20-5.40) L Hemoglobin 11.5 G/DL (12.0-16.0) L Hematocrit 36.2 % (37.0-47.0) L Mean Corpuscular Volume 100 FL (80-99) H Mean Corpuscular Hemoglobin 31.9 PG (27.0-31.0) H Mean Corpuscular Hemoglobin Concent 31.8 G/DL (32.0-36.0) L Red Cell Distribution Width 22.0 % (11.6-14.8) H Platelet Count 128 K/UL (150-450) L Mean Platelet Volume 7.5 FL (6.5-10.1) Neutrophils (%) (Auto) 75.0 % (45.0-75.0) Lymphocytes (%) (Auto) 12.6 % (20.0-45.0) L Monocytes (%) (Auto) 9.6 % (1.0-10.0) Eosinophils (%) (Auto) 2.3 % (0.0-3.0) Basophils (%) (Auto) 0.6 % (0.0-2.0) Sodium Level 136 mEQ/L (135-145) Potassium Level 3.9 mEQ/L (3.4-4.9) Chloride Level 90 mEQ/L (98-107) L Carbon Dioxide Level 23 mEQ/L (20-30) Anion Gap 23 (5-15) H Blood Urea Nitrogen 50 mg/dL (7-23) H Creatinine 7.6 mg/dL (0.5-0.9) H Estimat Glomerular Filtration Rate mL/min (>60) Glucose Level 377 mg/dL (74-106) H Calcium Level 7.7 mg/dL (8.6-10.2) L Height (Feet): 5 Height (Inches): 5.00 Weight (Pounds): 106 General Appearance: no apparent distress, alert, thin Cardiovascular: normal rate Respiratory/Chest: no respiratory distress Abdominal Exam: normal bowel sounds, non tender, soft Genitourinary/Rectal: normal genital exam Extremities: normal range of motion Bere Matos N.P. Apr 20, 2017 10:05
--- NOTE | 2017-04-20 11:38 | Nephrology Progress Note ---
Assessment/Plan Problem List: (1) ESRD (end stage renal disease) on dialysis (2) Abdominal pain (3) DM (diabetes mellitus) (4) HTN (hypertension) (5) CHF (congestive heart failure) Plan HD today start Rocaltrol Subjective Subjective feels better Objective Objective Last 24 Hour Vital Signs Date Time Temp Pulse Resp B/P Pulse Ox O2 Delivery O2 Flow Rate FiO2 04/20/17 09:58 147/58 04/20/17 09:57 73 147/58 04/20/17 08:57 97.0 73 18 147/58 100 Room Air 04/20/17 04:00 97.4 71 20 136/60 99 Room Air 04/20/17 04:00 71 04/20/17 00:00 75 04/20/17 00:00 97.0 75 19 142/60 94 Room Air 04/19/17 23:13 72 137/63 04/19/17 20:00 98.1 72 20 137/63 99 Nasal Cannula 2.0 04/19/17 20:00 75 04/19/17 17:30 149/55 04/19/17 16:08 97.1 70 18 149/55 100 Nasal Cannula 2.0 04/19/17 16:00 69 04/19/17 12:01 97.3 64 18 139/58 100 Nasal Cannula 3.0 04/19/17 12:00 74 Intake and Output 04/19/17 04/20/17 19:00 07:00 Intake Total 780 ml 100 ml Output Total 0 ml Balance 780 ml 100 ml Intake Oral 480 ml 100 ml IV Total 300 ml Estimated Blood Loss 0 ml # Bowel Movements 1 Laboratory Tests 04/20/17 06:05: White Blood Count 6.3, Red Blood Count 3.60L, Hemoglobin 11.5L, Hematocrit 36.2L , Mean Corpuscular Volume 100H, Mean Corpuscular Hemoglobin 31.9H, Mean Corpuscular Hemoglobin Concent 31.8L, Red Cell Distribution Width 22.0H, Platelet Count 128L, Mean Platelet Volume 7.5, Neutrophils (%) (Auto) 75.0, Lymphocytes (%) (Auto) 12.6L, Monocytes (%) (Auto) 9.6, Eosinophils (%) (Auto) 2.3, Basophils (%) (Auto) 0.6, Sodium Level 136, Potassium Level 3.9, Chloride Level 90L, Carbon Dioxide Level 23, Anion Gap 23H, Blood Urea Nitrogen 50H, Creatinine 7.6H, Estimat Glomerular Filtration Rate , Glucose Level 377H, Calcium Level 7.7L Height (Feet): 5 Height (Inches): 5.00 Weight (Pounds): 106 Cardiovascular: normal rate Respiratory/Chest: lungs clear Abdomen: soft CADEN GORDON Apr 20, 2017 11:38
[2017-04-20] MEDS ORDERED: Calcitriol 0.5mcg Cap ORAL SCH (12:00)
[2017-04-20] MEDS ORDERED: Calcitriol 0.25mcg Cap ORAL SCH (12:30)
--- NOTE | 2017-04-20 12:36 | Cardiac Electrophysiology PN ---
Subjective Subjective [id number] Objective Last 24 Hour Vital Signs Date Time Temp Pulse Resp B/P Pulse Ox O2 Delivery O2 Flow Rate FiO2 04/20/17 11:50 97.3 71 20 117/50 97 Room Air 04/20/17 09:58 147/58 04/20/17 09:57 73 147/58 04/20/17 08:57 97.0 73 18 147/58 100 Room Air 04/20/17 08:40 130 04/20/17 07:49 68 04/20/17 04:00 97.4 71 20 136/60 99 Room Air 04/20/17 04:00 71 04/20/17 00:00 75 04/20/17 00:00 97.0 75 19 142/60 94 Room Air 04/19/17 23:13 72 137/63 04/19/17 20:00 98.1 72 20 137/63 99 Nasal Cannula 2.0 04/19/17 20:00 75 04/19/17 17:30 149/55 04/19/17 16:08 97.1 70 18 149/55 100 Nasal Cannula 2.0 04/19/17 16:00 69 Intake and Output 04/19/17 04/20/17 19:00 07:00 Intake Total 780 ml 100 ml Output Total 0 ml Balance 780 ml 100 ml Intake Oral 480 ml 100 ml IV Total 300 ml Estimated Blood Loss 0 ml # Bowel Movements 1 Laboratory Tests Test 04/20/17 06:05 White Blood Count 6.3 K/UL (4.8-10.8) Red Blood Count 3.60 M/UL (4.20-5.40) L Hemoglobin 11.5 G/DL (12.0-16.0) L Hematocrit 36.2 % (37.0-47.0) L Mean Corpuscular Volume 100 FL (80-99) H Mean Corpuscular Hemoglobin 31.9 PG (27.0-31.0) H Mean Corpuscular Hemoglobin Concent 31.8 G/DL (32.0-36.0) L Red Cell Distribution Width 22.0 % (11.6-14.8) H Platelet Count 128 K/UL (150-450) L Mean Platelet Volume 7.5 FL (6.5-10.1) Neutrophils (%) (Auto) 75.0 % (45.0-75.0) Lymphocytes (%) (Auto) 12.6 % (20.0-45.0) L Monocytes (%) (Auto) 9.6 % (1.0-10.0) Eosinophils (%) (Auto) 2.3 % (0.0-3.0) Basophils (%) (Auto) 0.6 % (0.0-2.0) Sodium Level 136 mEQ/L (135-145) Potassium Level 3.9 mEQ/L (3.4-4.9) Chloride Level 90 mEQ/L (98-107) L Carbon Dioxide Level 23 mEQ/L (20-30) Anion Gap 23 (5-15) H Blood Urea Nitrogen 50 mg/dL (7-23) H Creatinine 7.6 mg/dL (0.5-0.9) H Estimat Glomerular Filtration Rate mL/min (>60) Glucose Level 377 mg/dL (74-106) H Calcium Level 7.7 mg/dL (8.6-10.2) L Microbiology Date/Time Source Procedure Growth Status 04/17/17 18:20 Nasal Nares MRSA Culture - Final NO METHICILLIN RESISTANT STAPH AUREUS... Complete 04/17/17 18:20 Rectum VRE Culture - Final Enterococcus Faecium - Vre Complete KEESHA KERN Apr 20, 2017 12:36
--- NOTE | 2017-04-20 13:06 | Discharge Summary ---
Discharge Summary Hospital Course Date of Admission Apr 17, 2017 at 22:43 Date of Discharge April 20, 2017 Admitting Diagnosis abdominal pain, esrd, hyperkalemia HPI Karol Gaytan is a 71 year old female who was admitted on Apr 17, 2017 at 22:43 for Abdominal Pain and CHF exacerbation BRIEF HOSPITAL COURSE SUMMARY: This is a 71-year-old female with history of end-stage renal disease on hemodialysis, Mondays, Wednesdays, and Fridays, congestive heart failure, hypertension, chf WITH EF 30-35% and status post ICD, who presents to the emergency room with epigastric pain and SOB. She had HD a few times while here. she had vtach for 16 beats and had ICD checked by Cards. She had a colo and EGD that unrevealing. Discharge Condition Upon Discharge: stable Discharge Disposition Patient was discharged to HOME Discharge Diagnoses: ALEJANDRA MORALEZ M.D. Apr 20, 2017 13:06
--- NOTE | 2017-04-20 13:16 | Cardiac Electrophysiology PN ---
Subjective Subjective [employer] ICD was interrogated. Patients clinical VT was at rate 130- 150s but the VT detection rate of ICD was 170. VT detection rate was lowered to 150 with ATP and added a 3rd zone of 130-150 monitor zone. Objective Last 24 Hour Vital Signs Date Time Temp Pulse Resp B/P Pulse Ox O2 Delivery O2 Flow Rate FiO2 04/20/17 11:50 97.3 71 20 117/50 97 Room Air 04/20/17 09:58 147/58 04/20/17 09:57 73 147/58 04/20/17 08:57 97.0 73 18 147/58 100 Room Air 04/20/17 08:40 130 04/20/17 07:49 68 04/20/17 04:00 97.4 71 20 136/60 99 Room Air 04/20/17 04:00 71 04/20/17 00:00 75 04/20/17 00:00 97.0 75 19 142/60 94 Room Air 04/19/17 23:13 72 137/63 04/19/17 20:00 98.1 72 20 137/63 99 Nasal Cannula 2.0 04/19/17 20:00 75 04/19/17 17:30 149/55 04/19/17 16:08 97.1 70 18 149/55 100 Nasal Cannula 2.0 04/19/17 16:00 69 Intake and Output 04/19/17 04/20/17 19:00 07:00 Intake Total 780 ml 100 ml Output Total 0 ml Balance 780 ml 100 ml Intake Oral 480 ml 100 ml IV Total 300 ml Estimated Blood Loss 0 ml # Bowel Movements 1 Laboratory Tests Test 04/20/17 06:05 White Blood Count 6.3 K/UL (4.8-10.8) Red Blood Count 3.60 M/UL (4.20-5.40) L Hemoglobin 11.5 G/DL (12.0-16.0) L Hematocrit 36.2 % (37.0-47.0) L Mean Corpuscular Volume 100 FL (80-99) H Mean Corpuscular Hemoglobin 31.9 PG (27.0-31.0) H Mean Corpuscular Hemoglobin Concent 31.8 G/DL (32.0-36.0) L Red Cell Distribution Width 22.0 % (11.6-14.8) H Platelet Count 128 K/UL (150-450) L Mean Platelet Volume 7.5 FL (6.5-10.1) Neutrophils (%) (Auto) 75.0 % (45.0-75.0) Lymphocytes (%) (Auto) 12.6 % (20.0-45.0) L Monocytes (%) (Auto) 9.6 % (1.0-10.0) Eosinophils (%) (Auto) 2.3 % (0.0-3.0) Basophils (%) (Auto) 0.6 % (0.0-2.0) Sodium Level 136 mEQ/L (135-145) Potassium Level 3.9 mEQ/L (3.4-4.9) Chloride Level 90 mEQ/L (98-107) L Carbon Dioxide Level 23 mEQ/L (20-30) Anion Gap 23 (5-15) H Blood Urea Nitrogen 50 mg/dL (7-23) H Creatinine 7.6 mg/dL (0.5-0.9) H Estimat Glomerular Filtration Rate mL/min (>60) Glucose Level 377 mg/dL (74-106) H Calcium Level 7.7 mg/dL (8.6-10.2) L Microbiology Date/Time Source Procedure Growth Status 04/17/17 18:20 Nasal Nares MRSA Culture - Final NO METHICILLIN RESISTANT STAPH AUREUS... Complete 04/17/17 18:20 Rectum VRE Culture - Final Enterococcus Faecium - Vre Complete KEESHA KERN Apr 20, 2017 13:16
[2017-04-20 17:12] LABS: BASOPHILS % (AUTO) 1.3 % (0.0-2.0); LYMPHOCYTES % (AUTO) 13.6 % (20.0-45.0); MEAN CORPUSCULAR HEMOGLOBIN 31.9 PG (27.0-31.0); MEAN CORPUSCULAR HGB CONC 31.3 G/DL (32.0-36.0); MEAN CORPUSCULAR VOLUME 102 FL (80-99); MEAN PLATELET VOLUME 7.5 FL (6.5-10.1); MONOCYTES % (AUTO) 8.9 % (1.0-10.0); NEUTROPHILS % (AUTO) 74.3 % (45.0-75.0); PLATELET COUNT 127 K/UL (150-450); RED BLOOD COUNT 3.47 M/UL (4.20-5.40); RED CELL DISTRIBUTION WIDTH 21.6 % (11.6-14.8); WHITE BLOOD COUNT 7.3 K/UL (4.8-10.8)
[2017-04-20 17:30] LABS: ANION GAP 24 (5-15); CALCIUM 7.8 mg/dL (8.6-10.2); CARBON DIOXIDE 20 mEQ/L (20-30); CHLORIDE 89 mEQ/L (98-107); HEMOLYSIS 6; PHOSPHORUS 4.6 mg/dL (2.5-4.8); POTASSIUM 3.9 mEQ/L (3.4-4.9); SODIUM 133 mEQ/L (135-145)
--- NOTE | 2017-04-20 20:00 | Consultation ---
DATE OF CONSULTATION: 04/20/2017 CARDIOLOGY CONSULTATION CONSULTING PHYSICIAN: Abel Sher M.D. REFERRING PHYSICIAN: Jose Angel Maya M.D. REASON FOR CONSULTATION: Management of hypertension and congestive heart failure as well as the patient's ventricular tachycardia and defibrillator. HISTORY OF PRESENT ILLNESS: The patient is a 71-year-old, lady with history of hypertension; diabetes; end-stage renal disease, on hemodialysis; and also history of [employer] defibrillator implantation who was admitted to the hospital for her abdominal pain. On the telemetry, the patient had recurrent runs of ventricular tachycardia. The patient was getting therapy from her defibrillator. Cardiac Electrophysiology consultation was requested for further evaluation and management. At the time of my evaluation, the patient denies any chest pain or shortness of breath or syncope. REVIEW OF SYSTEMS: Review of systems was performed and was negative other than what was mentioned in history of present illness. PAST MEDICAL HISTORY: 1. Hypertension. 2. Diabetes. 3. Congestive heart failure. 4. History of [employer] defibrillator implantation. 5. Hemodialysis via right subclavian and she has a left arm graft that was revised about 2 weeks ago. MEDICATIONS: Reviewed. ALLERGIES: No known drug allergies. SOCIAL HISTORY: She does not smoke or drink alcohol. PHYSICAL EXAMINATION: VITAL SIGNS: Blood pressure is 117/50, pulse 71, respirations 20, and temperature 97.3. HEAD AND NECK: No JVD. LUNGS: Clear. CARDIOVASCULAR: Regular S1 and S2 with no gallop. Defibrillator is in the left subclavian. Dialysis line in the right subclavian. ABDOMEN: Soft. EXTREMITIES: No pitting edema. AV graft as mentioned above. LABORATORY DATA: White count of 6.7, hemoglobin 11.5, hematocrit 36.2, and platelet count is 128,000. Sodium 133, potassium 3.9, BUN of 50, creatinine 7.6, and glucose of 377. INR is 1.1. ASSESSMENT AND PLAN: 1. Recurrent ventricular tachycardia. These are nonsustained ventricular tachycardia with long episodes. We will interrogate the defibrillator, trying to find out how defibrillator sits, and to make sure it is functioning normally. We may need to start her on amiodarone to suppress the ventricular tachycardia. 2. Status post [employer] defibrillator. We will interrogate for further evaluation. 3. Severe cardiomyopathy with ejection fraction of 30%, on Coreg 6.25 mg b.i.d., lisinopril 20 mg b.i.d., on hemodialysis, off electrophoresis due to hyperkalemia. 4. End-stage renal disease, on hemodialysis. 5. Abdominal pain, status post esophagogastroduodenoscopy and colonoscopy. This showed gastritis and significant diverticulosis and colon was thickening. 6. Diabetes. Thank you very much, Dr. Maya, for allowing me to participate in the care of this patient. Please do not hesitate to contact me for any questions regarding my evaluation. Abel Sher M.D. DR: FRANKLYN JOB#: [id number] CC:
== END 2017-04-20 22:59 | disposition home or self-care (01) | DRG 291 ==
LOC: EMR 15:30 → EDBEDREQ 22:25 → 2E 22:43
DX: I50.9 Heart failure, unspecified (principal); N18.6 End stage renal disease; I47.2 Ventricular tachycardia; I12.0 Hypertensive chronic kidney disease with stage 5 chronic kidney disease or end stage renal disease; E11.22 Type 2 diabetes mellitus with diabetic chronic kidney disease; I42.9 Cardiomyopathy, unspecified; Z99.2 Dependence on renal dialysis; K29.70 Gastritis, unspecified, without bleeding; E87.5 Hyperkalemia; Z95.810 Presence of automatic (implantable) cardiac defibrillator; K57.90 Diverticulosis of intestine, part unspecified, without perforation or abscess without bleeding; D12.5 Benign neoplasm of sigmoid colon; K44.9 Diaphragmatic hernia without obstruction or gangrene; K64.8 Other hemorrhoids; I25.2 Old myocardial infarction
CPT/HCPCS: 36415; 74176; 80048; 80053; 82962; 83036; 83690; 84100; 84484; 85025; 85610; 85730; 87081; 93005; 93306; 94003; 94150; J1815